=== PATIENT | male | born 1935 | race Caucasian/White ===

== ENCOUNTER 2021-09-28 17:16 | Inpatient (IN) | payer OTHER, BC ==
[2021-09-28 18:32] LABS: EOS % 1.3 % (0-4.5); HEMATOCRIT 47.7 % (35.4-49); HEMOGLOBIN 15.3 GM/dL (11.7-16.9); LYMPH % 12.5 % (8-40); MCHC 32.2 g/dl (32.0-35.9); MEAN CELL VOLUME 96.3 fl (80-96); MEAN PLT VOLUME 8.8 fl (7.5-11.1); NEUT % 78.2 % (42.8-82.8); PLATELET COUNT 166 10^3/uL (134-434); RBC 4.96 M/mm3 (4.00-5.60); RDW 18.8 % (11.9-15.9); WHITE BLOOD COUNT 5.3 K/mm3 (4.0-10.0)
[2021-09-28 18:58] LABS: ALBUMIN 3.1 g/dl (3.4-5.0); CALCIUM 8.9 mg/dL (8.5-10.1); MAGNESIUM 2.5 mg/dL (1.8-2.4)
[2021-09-28 18:59] LABS: BLOOD UREA NITROGEN 31.1 mg/dL (7-18)
[2021-09-28 19:02] LABS: CREATININE 2.1 mg/dL (0.55-1.3)
[2021-09-28 19:03] LABS: BILIRUBIN,TOTAL 1.5 mg/dL (0.2-1); TOT PROT 6.1 g/dl (6.4-8.2)
[2021-09-28] MEDS ORDERED: FUROSEMIDE 40 MG/4 ML INJECTABLE VIAL IVPUSH ONE (19:04)
[2021-09-28] MEDS ORDERED: FUROSEMIDE 40 MG/4 ML INJECTABLE VIAL ONE (19:10)
[2021-09-28 19:26] LABS: INR 1.61 (0.83-1.09); PROTHROMBIN TIME (PATIENT) 18.6 SEC (9.7-13.0)
[2021-09-28 19:47] LABS: N-TERMINAL BNP 21250.2 pg/ml (5-450)
[2021-09-28 20:27] LABS: EPI CELLS 4 /uL (0-25.1); HYALINE CASTS 2 /uL (0-3.1); URINE APPEARANCE CLEAR; URINE BACTERIA 5 /uL (0-1359); URINE BILIRUBIN NEGATIVE (NEGATIVE); URINE COLOR YELLOW; URINE GLUCOSE (UA) NEGATIVE (NEGATIVE); URINE KETONE NEGATIVE (NEGATIVE); URINE LEUK ESTERASE TRACE (NEGATIVE); URINE NITRITE NEGATIVE (NEGATIVE); URINE PROTEIN NEGATIVE (NEGATIVE); URINE RBC 2 /uL (0-23.9); URINE WBC 11 /uL (0-25.8)
[2021-09-28] MEDS ORDERED: FUROSEMIDE 40 MG/4 ML INJECTABLE VIAL IVPUSH SCH (21:30)
[2021-09-28] MEDS ORDERED: APIXABAN 2.5 MG TABLET ONE (23:13)
[2021-09-28] MEDS: APIXABAN 2.5 MG TABLET PO SCH (23:15)
[2021-09-29] MEDS ORDERED: FUROSEMIDE 40 MG/4 ML INJECTABLE VIAL IVPUSH ONE (01:36)
[2021-09-29 07:36] LABS: BASO % 0.8 % (0-2.0); EOS % 2.2 % (0-4.5); HEMATOCRIT 43.5 % (35.4-49); HEMOGLOBIN 14.1 GM/dL (11.7-16.9); LYMPH % 17.1 % (8-40); MCH 31.1 pg (25.7-33.7); MCHC 32.4 g/dl (32.0-35.9); MEAN PLT VOLUME 8.7 fl (7.5-11.1); NEUT % 71.9 % (42.8-82.8); PLATELET COUNT 138 10^3/uL (134-434); RBC 4.54 M/mm3 (4.00-5.60); RDW 17.7 % (11.9-15.9); WHITE BLOOD COUNT 4.8 K/mm3 (4.0-10.0)
[2021-09-29 07:44] LABS: MAGNESIUM 2.4 mg/dL (1.8-2.4)
[2021-09-29 07:45] LABS: CALCIUM 8.7 mg/dL (8.5-10.1)
[2021-09-29 07:46] LABS: CREATININE 2.2 mg/dL (0.55-1.3); TOT PROT 5.5 g/dl (6.4-8.2)
[2021-09-29 07:52] LABS: BLOOD UREA NITROGEN 33.8 mg/dL (7-18)
[2021-09-29 07:54] LABS: ALBUMIN 2.8 g/dl (3.4-5.0); BILIRUBIN,TOTAL 1.2 mg/dL (0.2-1); PHOSPHOROUS 3.6 mg/dL (2.5-4.9)
[2021-09-29] MEDS: APIXABAN 2.5 MG TABLET PO SCH ×2 (09:36→21:22)
[2021-09-29] MEDS: AMIODARONE HCL 200 MG TABLET PO SCH (10:59)
[2021-09-29] MEDS: FUROSEMIDE 40 MG/4 ML INJECTABLE VIAL IVPUSH SCH (11:00)
[2021-09-29] MEDS: ATORVASTATIN CA 80 MG TABLET (FP) PO SCH (21:23)
[2021-09-29 22:17] LABS: EPI CELLS 3 /uL (0-25.1); HYALINE CASTS 1 /uL (0-3.1); URINE APPEARANCE CLEAR; URINE BACTERIA 1 /uL (0-1359); URINE BILIRUBIN NEGATIVE (NEGATIVE); URINE COLOR DK YELLOW; URINE GLUCOSE (UA) NEGATIVE (NEGATIVE); URINE KETONE NEGATIVE (NEGATIVE); URINE LEUK ESTERASE TRACE (NEGATIVE); URINE NITRITE NEGATIVE (NEGATIVE); URINE PROTEIN NEGATIVE (NEGATIVE); URINE RBC 12 /uL (0-23.9); URINE UROBILINOGEN 0.2 mg/dL (0.2-1.0); URINE WBC 13 /uL (0-25.8)
[2021-09-30 07:22] LABS: BASO % 0.8 % (0-2.0); EOS % 3.4 % (0-4.5); HEMATOCRIT 40.1 % (35.4-49); HEMOGLOBIN 13.5 GM/dL (11.7-16.9); LYMPH % 15.7 % (8-40); MCH 31.7 pg (25.7-33.7); MCHC 33.5 g/dl (32.0-35.9); MEAN CELL VOLUME 94.6 fl (80-96); MEAN PLT VOLUME 8.7 fl (7.5-11.1); MONO % 8.6 % (3.8-10.2); NEUT % 71.5 % (42.8-82.8); PLATELET COUNT 121 10^3/uL (134-434); RBC 4.24 M/mm3 (4.00-5.60); RDW 18.1 % (11.9-15.9); WHITE BLOOD COUNT 4.5 K/mm3 (4.0-10.0)
[2021-09-30 07:44] LABS: CALCIUM 8.7 mg/dL (8.5-10.1)
[2021-09-30 07:45] LABS: ALBUMIN 2.7 g/dl (3.4-5.0); BLOOD UREA NITROGEN 33.3 mg/dL (7-18); MAGNESIUM 2.5 mg/dL (1.8-2.4)
[2021-09-30 07:48] LABS: BILIRUBIN,TOTAL 1.1 mg/dL (0.2-1); CREATININE 2.1 mg/dL (0.55-1.3); TOT PROT 5.2 g/dl (6.4-8.2)
[2021-09-30] MEDS: APIXABAN 2.5 MG TABLET PO SCH ×2 (09:20→23:06)
[2021-09-30] MEDS: FUROSEMIDE 40 MG/4 ML INJECTABLE VIAL IVPUSH SCH (09:54)
[2021-09-30] MEDS: AMIODARONE HCL 200 MG TABLET PO SCH (09:54)
[2021-09-30] MEDS ORDERED: AMIODARONE HCL 200 MG TABLET PO ONE (13:03)
[2021-09-30] MEDS ORDERED: FUROSEMIDE 40 MG/4 ML INJECTABLE VIAL IVPUSH SCH (13:04)
[2021-09-30] MEDS: BACITRACIN 15 GM TUBE TOPICAL OINTMENT TP SCH ×2 (14:06→23:06)
[2021-09-30] MEDS: FUROSEMIDE INJECTION 100 MG in DEXTROSE 5%-WATER - 90 ML IVPB SCH (15:18)
[2021-09-30] MEDS: ATORVASTATIN CA 80 MG TABLET (FP) PO SCH (23:06)
[2021-10-01 07:34] LABS: BASO % 0.5 % (0-2.0); HEMATOCRIT 40.2 % (35.4-49); HEMOGLOBIN 13.1 GM/dL (11.7-16.9); LYMPH % 13.6 % (8-40); MCH 30.9 pg (25.7-33.7); MCHC 32.4 g/dl (32.0-35.9); MEAN CELL VOLUME 95.2 fl (80-96); MEAN PLT VOLUME 8.7 fl (7.5-11.1); MONO % 8.4 % (3.8-10.2); NEUT % 75.5 % (42.8-82.8); PLATELET COUNT 121 10^3/uL (134-434); RBC 4.23 M/mm3 (4.00-5.60); RDW 18.2 % (11.9-15.9); WHITE BLOOD COUNT 5.2 K/mm3 (4.0-10.0)
[2021-10-01 08:16] LABS: ALBUMIN 2.9 g/dl (3.4-5.0); CALCIUM 8.9 mg/dL (8.5-10.1)
[2021-10-01 08:17] LABS: BLOOD UREA NITROGEN 29.8 mg/dL (7-18); MAGNESIUM 2.4 mg/dL (1.8-2.4)
[2021-10-01 08:20] LABS: CREATININE 1.9 mg/dL (0.55-1.3)
[2021-10-01 08:21] LABS: BILIRUBIN,TOTAL 1.6 mg/dL (0.2-1); TOT PROT 5.6 g/dl (6.4-8.2)
[2021-10-01] MEDS: AMIODARONE HCL 200 MG TABLET PO SCH (10:11)
[2021-10-01] MEDS: APIXABAN 2.5 MG TABLET PO SCH ×2 (10:12→21:58)
[2021-10-01] MEDS: BACITRACIN 15 GM TUBE TOPICAL OINTMENT TP SCH ×2 (10:14→21:59)
[2021-10-01] MEDS: ATORVASTATIN CA 80 MG TABLET (FP) PO SCH (22:02)
[2021-10-02 08:53] LABS: BASO % 0.5 % (0-2.0); EOS % 1.8 % (0-4.5); HEMATOCRIT 40.7 % (35.4-49); HEMOGLOBIN 13.6 GM/dL (11.7-16.9); MCH 31.4 pg (25.7-33.7); MCHC 33.4 g/dl (32.0-35.9); MEAN CELL VOLUME 93.9 fl (80-96); MEAN PLT VOLUME 8.7 fl (7.5-11.1); MONO % 8.9 % (3.8-10.2); NEUT % 75.8 % (42.8-82.8); PLATELET COUNT 120 10^3/uL (134-434); RBC 4.34 M/mm3 (4.00-5.60); RDW 18.3 % (11.9-15.9); WHITE BLOOD COUNT 5.3 K/mm3 (4.0-10.0)
[2021-10-02 09:04] LABS: CALCIUM 8.9 mg/dL (8.5-10.1)
[2021-10-02 09:05] LABS: ALBUMIN 3.1 g/dl (3.4-5.0); BLOOD UREA NITROGEN 30.1 mg/dL (7-18); MAGNESIUM 2.5 mg/dL (1.8-2.4)
[2021-10-02 09:08] LABS: CREATININE 1.9 mg/dL (0.55-1.3)
[2021-10-02 09:09] LABS: TOT PROT 5.8 g/dl (6.4-8.2)
[2021-10-02 09:10] LABS: BILIRUBIN,TOTAL 1.6 mg/dL (0.2-1)
[2021-10-02] MEDS: APIXABAN 2.5 MG TABLET PO SCH ×2 (09:20→21:39)
[2021-10-02] MEDS: AMIODARONE HCL 200 MG TABLET PO SCH (09:20)
[2021-10-02] MEDS: FUROSEMIDE INJECTION 100 MG in DEXTROSE 5%-WATER - 90 ML IVPB SCH (09:23)
[2021-10-02] MEDS: BACITRACIN 15 GM TUBE TOPICAL OINTMENT TP SCH ×2 (09:24→21:38)
[2021-10-02] MEDS: ATORVASTATIN CA 80 MG TABLET (FP) PO SCH (21:39)
[2021-10-03 06:53] LABS: BASO % 0.5 % (0-2.0); EOS % 0.8 % (0-4.5); HEMATOCRIT 41.4 % (35.4-49); HEMOGLOBIN 13.3 GM/dL (11.7-16.9); LYMPH % 12.3 % (8-40); MCH 30.7 pg (25.7-33.7); MCHC 32.1 g/dl (32.0-35.9); MEAN CELL VOLUME 95.8 fl (80-96); MEAN PLT VOLUME 8.9 fl (7.5-11.1); MONO % 10.4 % (3.8-10.2); PLATELET COUNT 114 10^3/uL (134-434); RBC 4.32 M/mm3 (4.00-5.60); RDW 18.1 % (11.9-15.9)
[2021-10-03 07:29] LABS: ALBUMIN 3.1 g/dl (3.4-5.0)
[2021-10-03 07:30] LABS: BLOOD UREA NITROGEN 30.6 mg/dL (7-18)
[2021-10-03 07:32] LABS: CREATININE 1.8 mg/dL (0.55-1.3)
[2021-10-03 07:33] LABS: MAGNESIUM 2.5 mg/dL (1.8-2.4)
[2021-10-03 07:34] LABS: TOT PROT 5.5 g/dl (6.4-8.2)
[2021-10-03] MEDS: BACITRACIN 15 GM TUBE TOPICAL OINTMENT TP SCH ×2 (09:37→22:10)
[2021-10-03] MEDS: APIXABAN 2.5 MG TABLET PO SCH ×2 (09:37→21:54)
[2021-10-03] MEDS: AMIODARONE HCL 200 MG TABLET PO SCH (09:37)
[2021-10-03] MEDS: ATORVASTATIN CA 80 MG TABLET (FP) PO SCH (21:54)
[2021-10-04] MEDS: FUROSEMIDE INJECTION 100 MG in DEXTROSE 5%-WATER - 90 ML IVPB SCH (06:59)
[2021-10-04 07:25] LABS: BASO % 0.1 % (0-2.0); EOS % 0.1 % (0-4.5); HEMATOCRIT 41.4 % (35.4-49); HEMOGLOBIN 13.6 GM/dL (11.7-16.9); MCH 31.8 pg (25.7-33.7); MEAN CELL VOLUME 96.4 fl (80-96); MEAN PLT VOLUME 9.6 fl (7.5-11.1); MONO % 9.7 % (3.8-10.2); NEUT % 82.1 % (42.8-82.8); PLATELET COUNT 112 10^3/uL (134-434); RBC 4.29 M/mm3 (4.00-5.60); RDW 18.2 % (11.9-15.9); WHITE BLOOD COUNT 6.7 K/mm3 (4.0-10.0)
[2021-10-04 07:28] LABS: BLOOD UREA NITROGEN 39.6 mg/dL (7-18); CALCIUM 9.5 mg/dL (8.5-10.1)
[2021-10-04 07:29] LABS: ALBUMIN 3.2 g/dl (3.4-5.0); MAGNESIUM 2.4 mg/dL (1.8-2.4)
[2021-10-04 07:31] LABS: CREATININE 2.3 mg/dL (0.55-1.3)
[2021-10-04 07:33] LABS: BILIRUBIN,TOTAL 3.3 mg/dL (0.2-1); TOT PROT 5.8 g/dl (6.4-8.2)
[2021-10-04] MEDS: AMIODARONE HCL 200 MG TABLET PO SCH (09:58)
[2021-10-04] MEDS: BACITRACIN 15 GM TUBE TOPICAL OINTMENT TP SCH ×2 (09:58→22:29)
[2021-10-04] MEDS: APIXABAN 2.5 MG TABLET PO SCH ×2 (09:58→22:28)
[2021-10-04] MEDS: ATORVASTATIN CA 80 MG TABLET (FP) PO SCH (22:28)
[2021-10-05 08:44] LABS: BASO % 0.1 % (0-2.0); EOS % 0.1 % (0-4.5); HEMATOCRIT 41.5 % (35.4-49); HEMOGLOBIN 13.4 GM/dL (11.7-16.9); LYMPH % 4.6 % (8-40); MCH 30.9 pg (25.7-33.7); MCHC 32.2 g/dl (32.0-35.9); MEAN CELL VOLUME 95.8 fl (80-96); MONO % 7.3 % (3.8-10.2); NEUT % 87.9 % (42.8-82.8); PLATELET COUNT 63 10^3/uL (134-434); RBC 4.34 M/mm3 (4.00-5.60); WHITE BLOOD COUNT 7.9 K/mm3 (4.0-10.0)
[2021-10-05 09:10] LABS: BLOOD UREA NITROGEN 56.9 mg/dL (7-18); MAGNESIUM 2.9 mg/dL (1.8-2.4)
[2021-10-05 09:12] LABS: CREATININE 3.4 mg/dL (0.55-1.3)
[2021-10-05 09:14] LABS: BILIRUBIN,TOTAL 5.2 mg/dL (0.2-1); TOT PROT 5.7 g/dl (6.4-8.2)
[2021-10-05] MEDS: AMIODARONE HCL 200 MG TABLET PO SCH (09:17)
[2021-10-05] MEDS: APIXABAN 2.5 MG TABLET PO SCH (09:17)
[2021-10-05] MEDS: BACITRACIN 15 GM TUBE TOPICAL OINTMENT TP SCH ×2 (09:17→21:31)
[2021-10-05] MEDS ORDERED: SODIUM BICARBONATE 8.4% 50 MEQ/50 ML DISP.SYRIN IVPUSH ONE ×2 (09:41→10:21)
[2021-10-05] MEDS ORDERED: CALCIUM GLUCONATE 10% - 1,000 MG/10 ML VIAL IVPB ONE (09:41)
[2021-10-05] MEDS ORDERED: INSULIN REGULAR HUMAN 100 UNITS/ML *VIAL SQ ONE (09:41)
[2021-10-05] MEDS ORDERED: DEXTROSE 50%-WATER - 25 GM/50 ML VIAL IVPUSH ONE ×2 (09:41→10:21)
[2021-10-05] MEDS ORDERED: SODIUM ZIRCONIUM CYCLOSILICATE (LOKELMA) 5 GM PACKET PO SCH (10:00)
[2021-10-05] MEDS ORDERED: CALCIUM GLUCONATE 10% - 1,000 MG/10 ML VIAL IVPUSH ONE (10:21)
[2021-10-05 12:09] LABS: PROTHROMBIN TIME (PATIENT) 63.4 SEC (9.7-13.0)
[2021-10-05 12:15] LABS: INR 5.42 (0.83-1.09)
[2021-10-05] MEDS ORDERED: PHYTONADIONE 10 MG/1 ML AMP SQ ONE (12:24)
[2021-10-05] MEDS ORDERED: SODIUM CHLORIDE 500 ML IV SCH (12:45)
[2021-10-05 16:28] LABS: BASO % 0.1 % (0-2.0); HEMATOCRIT 39.7 % (35.4-49); HEMOGLOBIN 13.1 GM/dL (11.7-16.9); LYMPH % 4.6 % (8-40); MCH 31.5 pg (25.7-33.7); MEAN CELL VOLUME 95.5 fl (80-96); MEAN PLT VOLUME 9.5 fl (7.5-11.1); MONO % 5.8 % (3.8-10.2); NEUT % 89.5 % (42.8-82.8); PLATELET COUNT 45 10^3/uL (134-434); RBC 4.15 M/mm3 (4.00-5.60); RDW 17.9 % (11.9-15.9); WHITE BLOOD COUNT 7.5 K/mm3 (4.0-10.0)
[2021-10-05 16:54] LABS: PROTHROMBIN TIME (PATIENT) 64.1 SEC (9.7-13.0)
[2021-10-05 17:29] LABS: INR 5.48 (0.83-1.09)
[2021-10-05 17:51] LABS: BILIRUBIN,DIRECT 3.7 mg/dL (0.0-0.2); BILIRUBIN,TOTAL 5.6 mg/dL (0.2-1); BLOOD UREA NITROGEN 62.2 mg/dL (7-18); CALCIUM 8.8 mg/dL (8.5-10.1); CREATININE 3.4 mg/dL (0.55-1.3); TOT PROT 5.5 g/dl (6.4-8.2)
[2021-10-05] MEDS: SODIUM ZIRCONIUM CYCLOSILICATE (LOKELMA) 5 GM PACKET PO SCH (21:31)
[2021-10-06 07:50] LABS: HEMATOCRIT 40.9 % (35.4-49); HEMOGLOBIN 13.3 GM/dL (11.7-16.9); MCH 31.1 pg (25.7-33.7); MCHC 32.5 g/dl (32.0-35.9); MEAN CELL VOLUME 95.6 fl (80-96); MEAN PLT VOLUME 10.2 fl (7.5-11.1); PLATELET COUNT 45 10^3/uL (134-434); RBC 4.28 M/mm3 (4.00-5.60); RDW 17.8 % (11.9-15.9); WHITE BLOOD COUNT 6.5 K/mm3 (4.0-10.0)
[2021-10-06 08:18] LABS: ALBUMIN 2.8 g/dl (3.4-5.0)
[2021-10-06 08:21] LABS: BILIRUBIN,DIRECT 3.7 mg/dL (0.0-0.2); BILIRUBIN,TOTAL 5.2 mg/dL (0.2-1); TOT PROT 5.3 g/dl (6.4-8.2)
[2021-10-06 08:23] LABS: PROTHROMBIN TIME (PATIENT) 50.9 SEC (9.7-13.0)
[2021-10-06 08:39] LABS: INR 4.36 (0.83-1.09)
[2021-10-06] MEDS ORDERED: PHYTONADIONE 10 MG/1 ML AMP SQ ONE (08:43)
[2021-10-06 08:45] LABS: ALBUMIN 2.8 g/dl (3.4-5.0); BILIRUBIN,TOTAL 5.5 mg/dL (0.2-1); BLOOD UREA NITROGEN 66.7 mg/dL (7-18); CREATININE 3.7 mg/dL (0.55-1.3); MAGNESIUM 2.7 mg/dL (1.8-2.4); TOT PROT 5.2 g/dl (6.4-8.2)
[2021-10-06 09:43] LABS: ANISOCYTOSIS 1+; MACROCYTOSIS 0; OVALOCYTE 1+
[2021-10-06] MEDS: SODIUM ZIRCONIUM CYCLOSILICATE (LOKELMA) 5 GM PACKET PO SCH (10:41)
[2021-10-06] MEDS: BACITRACIN 15 GM TUBE TOPICAL OINTMENT TP SCH ×2 (10:41→21:55)
[2021-10-06] MEDS ORDERED: SODIUM CHLORIDE 1,000 ML IV SCH ×2 (13:00)
[2021-10-07 08:25] LABS: BASO % 0.1 % (0-2.0); EOS % 0.1 % (0-4.5); HEMATOCRIT 41.6 % (35.4-49); HEMOGLOBIN 13.7 GM/dL (11.7-16.9); INR 3.89 (0.83-1.09); LYMPH % 4.3 % (8-40); MCH 31.3 pg (25.7-33.7); MEAN PLT VOLUME 10.1 fl (7.5-11.1); MONO % 5.8 % (3.8-10.2); NEUT % 89.7 % (42.8-82.8); PLATELET COUNT 37 10^3/uL (134-434); PROTHROMBIN TIME (PATIENT) 45.4 SEC (9.7-13.0); RBC 4.38 M/mm3 (4.00-5.60); WHITE BLOOD COUNT 7.2 K/mm3 (4.0-10.0)
[2021-10-07 08:45] LABS: ALBUMIN 2.8 g/dl (3.4-5.0); CALCIUM 7.7 mg/dL (8.5-10.1); MAGNESIUM 2.8 mg/dL (1.8-2.4)
[2021-10-07 08:47] LABS: CREATININE 4.1 mg/dL (0.55-1.3)
[2021-10-07 08:49] LABS: BILIRUBIN,TOTAL 5.3 mg/dL (0.2-1); TOT PROT 5.2 g/dl (6.4-8.2)
[2021-10-07] MEDS ORDERED: SODIUM ZIRCONIUM CYCLOSILICATE (LOKELMA) 5 GM PACKET PO SCH (10:00)
[2021-10-07] MEDS: BACITRACIN 15 GM TUBE TOPICAL OINTMENT TP SCH ×2 (11:19→21:12)
[2021-10-07] MEDS ORDERED: SODIUM ZIRCONIUM CYCLOSILICATE (LOKELMA) 5 GM PACKET PO ONE (11:25)
[2021-10-07] MEDS ORDERED: SODIUM CHLORIDE 1,000 ML IV SCH (12:15)
[2021-10-07] MEDS: SODIUM ZIRCONIUM CYCLOSILICATE (LOKELMA) 5 GM PACKET PO SCH (21:06)
[2021-10-07 22:58] LABS: ALBUMIN 2.5 g/dl (3.4-5.0); ALK PHOS 200 U/L (45-117); ANION GAP 19 MMOL/L (8-16); BILIRUBIN,TOTAL 5.1 mg/dL (0.2-1); BLOOD UREA NITROGEN 88.9 mg/dL (7-18); CALCIUM 7.2 mg/dL (8.5-10.1); CHLORIDE 100 mmol/L (98-107); CO2 13 mmol/L (21-32); CREATININE 4.3 mg/dL (0.55-1.3); GLUCOSE,RANDOM 100 mg/dL (74-106); SODIUM 132 mmol/L (136-145); TOT PROT 5.1 g/dl (6.4-8.2)
[2021-10-08 00:44] LABS: CALCIUM 7.2 mg/dL (8.5-10.1)
[2021-10-08 00:45] LABS: BLOOD UREA NITROGEN 86.5 mg/dL (7-18)
[2021-10-08 00:48] LABS: CREATININE 4.3 mg/dL (0.55-1.3)
[2021-10-08 08:35] LABS: INR 2.9 (0.83-1.09); PROTHROMBIN TIME (PATIENT) 33.7 SEC (9.7-13.0)
[2021-10-08] MEDS ORDERED: SODIUM CHLORIDE 500 ML IV STA (10:31)
[2021-10-08] MEDS: BACITRACIN 15 GM TUBE TOPICAL OINTMENT TP SCH ×2 (10:36→21:35)
[2021-10-08] MEDS: SODIUM ZIRCONIUM CYCLOSILICATE (LOKELMA) 5 GM PACKET PO SCH (10:54)
[2021-10-08 11:34] LABS: BASO % 0.1 % (0-2.0); EOS % 0.4 % (0-4.5); HEMATOCRIT 42.3 % (35.4-49); HEMOGLOBIN 13.8 GM/dL (11.7-16.9); LYMPH % 4.2 % (8-40); MCHC 32.6 g/dl (32.0-35.9); MEAN CELL VOLUME 95.1 fl (80-96); NEUT % 90.3 % (42.8-82.8); PLATELET COUNT 55 10^3/uL (134-434); RBC 4.44 M/mm3 (4.00-5.60)
[2021-10-08 11:44] LABS: INR 2.76 (0.83-1.09); PROTHROMBIN TIME (PATIENT) 32.1 SEC (9.7-13.0)
[2021-10-08] MEDS: SODIUM BICARBONATE 8.4% - 50 MEQ in SODIUM CHLORIDE 0.45% 1,000 ML IV SCH (13:21)
[2021-10-08 13:50] LABS: ALBUMIN 2.6 g/dl (3.4-5.0); CALCIUM 7.3 mg/dL (8.5-10.1)
[2021-10-08 13:51] LABS: BLOOD UREA NITROGEN 95.9 mg/dL (7-18)
[2021-10-08 13:53] LABS: BILIRUBIN,DIRECT 3.3 mg/dL (0.0-0.2); CREATININE 4.3 mg/dL (0.55-1.3)
[2021-10-08 13:55] LABS: BILIRUBIN,TOTAL 4.4 mg/dL (0.2-1); TOT PROT 4.8 g/dl (6.4-8.2)
[2021-10-08 23:11] LABS: BLOOD UREA NITROGEN 92.2 mg/dL (7-18); CREATININE 4.1 mg/dL (0.55-1.3)
[2021-10-08 23:12] LABS: ALBUMIN 2.5 g/dl (3.4-5.0); CALCIUM 7.1 mg/dL (8.5-10.1); TOT PROT 4.8 g/dl (6.4-8.2)
[2021-10-08 23:13] LABS: BILIRUBIN,TOTAL 4.6 mg/dL (0.2-1)
[2021-10-09] MEDS: SODIUM BICARBONATE 8.4% - 50 MEQ in SODIUM CHLORIDE 0.45% 1,000 ML IV SCH ×2 (00:28→12:09)
[2021-10-09 07:59] LABS: BASO % 0.1 % (0-2.0); EOS % 0.9 % (0-4.5); HEMATOCRIT 41.2 % (35.4-49); HEMOGLOBIN 13.4 GM/dL (11.7-16.9); LYMPH % 5.7 % (8-40); MCHC 32.6 g/dl (32.0-35.9); MEAN CELL VOLUME 95.2 fl (80-96); MEAN PLT VOLUME 9.6 fl (7.5-11.1); MONO % 5.1 % (3.8-10.2); NEUT % 88.2 % (42.8-82.8); PLATELET COUNT 57 10^3/uL (134-434); RBC 4.32 M/mm3 (4.00-5.60); RDW 18.1 % (11.9-15.9); WHITE BLOOD COUNT 5.6 K/mm3 (4.0-10.0)
[2021-10-09 08:16] LABS: INR 2.05 (0.83-1.09); PROTHROMBIN TIME (PATIENT) 23.7 SEC (9.7-13.0)
[2021-10-09 08:19] LABS: MAGNESIUM 2.8 mg/dL (1.8-2.4)
[2021-10-09] MEDS: BACITRACIN 15 GM TUBE TOPICAL OINTMENT TP SCH ×2 (09:04→21:34)
[2021-10-09 11:57] LABS: ALBUMIN 2.5 g/dl (3.4-5.0); BLOOD UREA NITROGEN 96.6 mg/dL (7-18); CALCIUM 7.4 mg/dL (8.5-10.1)
[2021-10-09 12:01] LABS: CREATININE 4.2 mg/dL (0.55-1.3)
[2021-10-09 12:02] LABS: BILIRUBIN,TOTAL 4.7 mg/dL (0.2-1); TOT PROT 4.8 g/dl (6.4-8.2)
[2021-10-09] MEDS ORDERED: SODIUM CHLORIDE 1,000 ML IV SCH (15:00)
[2021-10-09] MEDS: AMINO ACIDS/PROTEIN HYDROLYS 30 ML LIQUID.PKT PO SCH (17:13)
[2021-10-09] MEDS: APIXABAN 2.5 MG TABLET PO SCH (21:34)
[2021-10-10 07:29] LABS: BASO % 0.1 % (0-2.0); EOS % 1.9 % (0-4.5); HEMATOCRIT 40.7 % (35.4-49); HEMOGLOBIN 13.2 GM/dL (11.7-16.9); INR 1.88 (0.83-1.09); LYMPH % 8.1 % (8-40); MCH 30.8 pg (25.7-33.7); MCHC 32.4 g/dl (32.0-35.9); MEAN CELL VOLUME 95.1 fl (80-96); MEAN PLT VOLUME 8.9 fl (7.5-11.1); MONO % 6.6 % (3.8-10.2); NEUT % 83.3 % (42.8-82.8); PLATELET COUNT 59 10^3/uL (134-434); PROTHROMBIN TIME (PATIENT) 21.8 SEC (9.7-13.0); RBC 4.28 M/mm3 (4.00-5.60); RDW 17.7 % (11.9-15.9); WHITE BLOOD COUNT 5.9 K/mm3 (4.0-10.0)
[2021-10-10 07:50] LABS: ALBUMIN 2.3 g/dl (3.4-5.0); CREATININE 4.2 mg/dL (0.55-1.3)
[2021-10-10 07:51] LABS: BLOOD UREA NITROGEN 101.6 mg/dL (7-18)
[2021-10-10 07:52] LABS: BILIRUBIN,TOTAL 4.7 mg/dL (0.2-1); TOT PROT 4.6 g/dl (6.4-8.2)
[2021-10-10 07:53] LABS: CALCIUM 7.7 mg/dL (8.5-10.1); MAGNESIUM 2.7 mg/dL (1.8-2.4)
[2021-10-10] MEDS: AMINO ACIDS/PROTEIN HYDROLYS 30 ML LIQUID.PKT PO SCH ×2 (09:12→17:25)
[2021-10-10] MEDS: APIXABAN 2.5 MG TABLET PO SCH ×2 (09:12→21:36)
[2021-10-10] MEDS: BACITRACIN 15 GM TUBE TOPICAL OINTMENT TP SCH ×2 (09:13→21:37)
[2021-10-10] MEDS: FUROSEMIDE 40 MG/4 ML INJECTABLE VIAL IVPUSH SCH (14:02)
[2021-10-11 07:48] LABS: INR 1.84 (0.83-1.09); PROTHROMBIN TIME (PATIENT) 21.3 SEC (9.7-13.0)
[2021-10-11 07:50] LABS: BASO % 0.2 % (0-2.0); EOS % 2.1 % (0-4.5); HEMATOCRIT 38.2 % (35.4-49); HEMOGLOBIN 12.8 GM/dL (11.7-16.9); LYMPH % 4.6 % (8-40); MCH 31.2 pg (25.7-33.7); MCHC 33.4 g/dl (32.0-35.9); MEAN CELL VOLUME 93.6 fl (80-96); MEAN PLT VOLUME 8.8 fl (7.5-11.1); MONO % 6.2 % (3.8-10.2); NEUT % 86.9 % (42.8-82.8); PLATELET COUNT 62 10^3/uL (134-434); RBC 4.09 M/mm3 (4.00-5.60); RDW 17.6 % (11.9-15.9); WHITE BLOOD COUNT 4.9 K/mm3 (4.0-10.0)
[2021-10-11 07:58] LABS: CHLORIDE 96 mmol/L (98-107); SODIUM 133 mmol/L (136-145)
[2021-10-11 08:08] LABS: ALBUMIN 2.2 g/dl (3.4-5.0); ANION GAP 14 MMOL/L (8-16); CALCIUM 8.1 mg/dL (8.5-10.1); CO2 23 mmol/L (21-32); GLUCOSE,RANDOM 107 mg/dL (74-106)
[2021-10-11 08:09] LABS: MAGNESIUM 2.8 mg/dL (1.8-2.4)
[2021-10-11 08:11] LABS: CREATININE 3.9 mg/dL (0.55-1.3); SGOT/AST 248 U/L (15-37); SGPT/ALT 776 U/L (13-61)
[2021-10-11 08:13] LABS: BILIRUBIN,TOTAL 4.5 mg/dL (0.2-1); TOT PROT 4.5 g/dl (6.4-8.2)
[2021-10-11 08:14] LABS: ALK PHOS 149 U/L (45-117); BLOOD UREA NITROGEN 107.5 mg/dL (7-18)
[2021-10-11] MEDS: APIXABAN 2.5 MG TABLET PO SCH ×2 (10:19→21:35)
[2021-10-11] MEDS: FUROSEMIDE 40 MG/4 ML INJECTABLE VIAL IVPUSH SCH (10:19)
[2021-10-11] MEDS: BACITRACIN 15 GM TUBE TOPICAL OINTMENT TP SCH ×2 (10:20→21:35)
[2021-10-11] MEDS: AMINO ACIDS/PROTEIN HYDROLYS 30 ML LIQUID.PKT PO SCH ×2 (10:20→17:16)
[2021-10-12 07:44] LABS: BASO % 0.1 % (0-2.0); HEMATOCRIT 37.1 % (35.4-49); HEMOGLOBIN 12.5 GM/dL (11.7-16.9); LYMPH % 5.4 % (8-40); MCH 31.4 pg (25.7-33.7); MCHC 33.7 g/dl (32.0-35.9); MEAN CELL VOLUME 93.2 fl (80-96); MEAN PLT VOLUME 9.1 fl (7.5-11.1); MONO % 7.9 % (3.8-10.2); NEUT % 83.6 % (42.8-82.8); PLATELET COUNT 67 10^3/uL (134-434); RBC 3.98 M/mm3 (4.00-5.60); RDW 17.5 % (11.9-15.9); WHITE BLOOD COUNT 4.4 K/mm3 (4.0-10.0)
[2021-10-12 07:48] LABS: INR 1.88 (0.83-1.09); PROTHROMBIN TIME (PATIENT) 21.8 SEC (9.7-13.0)
[2021-10-12 07:59] LABS: CHLORIDE 96 mmol/L (98-107); SODIUM 133 mmol/L (136-145)
[2021-10-12 08:03] LABS: GLUCOSE,RANDOM 91 mg/dL (74-106)
[2021-10-12 08:04] LABS: ALBUMIN 2.2 g/dl (3.4-5.0)
[2021-10-12 08:05] LABS: ANION GAP 11 MMOL/L (8-16); CALCIUM 7.7 mg/dL (8.5-10.1); CO2 25 mmol/L (21-32); MAGNESIUM 2.6 mg/dL (1.8-2.4)
[2021-10-12 08:09] LABS: SGOT/AST 153 U/L (15-37); SGPT/ALT 612 U/L (13-61)
[2021-10-12 08:10] LABS: BILIRUBIN,TOTAL 4.7 mg/dL (0.2-1); TOT PROT 4.4 g/dl (6.4-8.2)
[2021-10-12 08:11] LABS: ALK PHOS 131 U/L (45-117)
[2021-10-12 08:14] LABS: BLOOD UREA NITROGEN 115.5 mg/dL (7-18); CREATININE 3.7 mg/dL (0.55-1.3)
[2021-10-12] MEDS: BACITRACIN 15 GM TUBE TOPICAL OINTMENT TP SCH ×2 (08:59→22:24)
[2021-10-12] MEDS: AMINO ACIDS/PROTEIN HYDROLYS 30 ML LIQUID.PKT PO SCH ×2 (08:59→17:59)
[2021-10-12] MEDS: AMIODARONE HCL 200 MG TABLET PO SCH (09:00)
[2021-10-12] MEDS: FUROSEMIDE 40 MG/4 ML INJECTABLE VIAL IVPUSH SCH (09:00)
[2021-10-12] MEDS: APIXABAN 2.5 MG TABLET PO SCH ×2 (09:00→22:24)
[2021-10-13 07:27] LABS: BASO % 0.9 % (0-2.0); EOS % 1.2 % (0-4.5); HEMATOCRIT 38.8 % (35.4-49); HEMOGLOBIN 12.8 GM/dL (11.7-16.9); LYMPH % 5.2 % (8-40); MCH 30.9 pg (25.7-33.7); MCHC 32.9 g/dl (32.0-35.9); MEAN CELL VOLUME 93.8 fl (80-96); MEAN PLT VOLUME 9.3 fl (7.5-11.1); MONO % 8.2 % (3.8-10.2); NEUT % 84.5 % (42.8-82.8); PLATELET COUNT 80 10^3/uL (134-434); RBC 4.14 M/mm3 (4.00-5.60); RDW 18.1 % (11.9-15.9); WHITE BLOOD COUNT 4.8 K/mm3 (4.0-10.0)
[2021-10-13 07:38] LABS: INR 1.69 (0.83-1.09); PROTHROMBIN TIME (PATIENT) 19.5 SEC (9.7-13.0)
[2021-10-13 07:45] LABS: CHLORIDE 95 mmol/L (98-107); SODIUM 133 mmol/L (136-145)
[2021-10-13 07:49] LABS: GLUCOSE,RANDOM 99 mg/dL (74-106)
[2021-10-13 07:50] LABS: ALBUMIN 2.3 g/dl (3.4-5.0); ANION GAP 12 MMOL/L (8-16); CALCIUM 8.2 mg/dL (8.5-10.1); CO2 26 mmol/L (21-32); MAGNESIUM 2.5 mg/dL (1.8-2.4)
[2021-10-13 07:52] LABS: SGPT/ALT 510 U/L (13-61)
[2021-10-13 07:53] LABS: CREATININE 3.4 mg/dL (0.55-1.3); SGOT/AST 110 U/L (15-37)
[2021-10-13 07:54] LABS: BILIRUBIN,TOTAL 4.3 mg/dL (0.2-1); TOT PROT 4.6 g/dl (6.4-8.2)
[2021-10-13 07:55] LABS: ALK PHOS 127 U/L (45-117)
[2021-10-13 07:56] LABS: BLOOD UREA NITROGEN 121.5 mg/dL (7-18)
[2021-10-13] MEDS: APIXABAN 2.5 MG TABLET PO SCH ×2 (09:07→21:13)
[2021-10-13] MEDS: BACITRACIN 15 GM TUBE TOPICAL OINTMENT TP SCH ×2 (09:07→21:16)
[2021-10-13] MEDS: AMIODARONE HCL 200 MG TABLET PO SCH (09:07)
[2021-10-13] MEDS: AMINO ACIDS/PROTEIN HYDROLYS 30 ML LIQUID.PKT PO SCH (09:07)
[2021-10-13 14:47] VITALS: BMI 24.2
[2021-10-13] MEDS ORDERED: FUROSEMIDE 20 MG TABLET (FP) PO ONE (15:06)
[2021-10-14 07:33] LABS: BASO % 0.3 % (0-2.0); EOS % 1.4 % (0-4.5); HEMATOCRIT 37.4 % (35.4-49); HEMOGLOBIN 12.5 GM/dL (11.7-16.9); LYMPH % 5.7 % (8-40); MCH 31.2 pg (25.7-33.7); MCHC 33.5 g/dl (32.0-35.9); MEAN PLT VOLUME 9.2 fl (7.5-11.1); MONO % 8.3 % (3.8-10.2); NEUT % 84.3 % (42.8-82.8); PLATELET COUNT 89 10^3/uL (134-434); RBC 4.02 M/mm3 (4.00-5.60); WHITE BLOOD COUNT 4.7 K/mm3 (4.0-10.0)
[2021-10-14 07:39] LABS: INR 1.84 (0.83-1.09); PROTHROMBIN TIME (PATIENT) 21.3 SEC (9.7-13.0)
[2021-10-14] MEDS: AMINO ACIDS/PROTEIN HYDROLYS 30 ML LIQUID.PKT PO SCH (09:00)
[2021-10-14] MEDS: APIXABAN 2.5 MG TABLET PO SCH ×2 (10:54→21:12)
[2021-10-14] MEDS: AMIODARONE HCL 200 MG TABLET PO SCH (10:54)
[2021-10-14] MEDS: BACITRACIN 15 GM TUBE TOPICAL OINTMENT TP SCH ×2 (10:55→21:11)
[2021-10-15 06:03] VITALS: TEMP 97.5
[2021-10-15 07:30] LABS: INR 1.67 (0.83-1.09); PROTHROMBIN TIME (PATIENT) 19.3 SEC (9.7-13.0)
[2021-10-15 07:31] LABS: BASO % 0.3 % (0-2.0); EOS % 1.1 % (0-4.5); HEMATOCRIT 36.3 % (35.4-49); HEMOGLOBIN 12.3 GM/dL (11.7-16.9); LYMPH % 5.9 % (8-40); MCH 31.6 pg (25.7-33.7); MCHC 33.9 g/dl (32.0-35.9); MEAN CELL VOLUME 93.4 fl (80-96); MONO % 6.9 % (3.8-10.2); NEUT % 85.8 % (42.8-82.8); PLATELET COUNT 100 10^3/uL (134-434); RBC 3.88 M/mm3 (4.00-5.60); RDW 17.9 % (11.9-15.9); WHITE BLOOD COUNT 5.1 K/mm3 (4.0-10.0)
[2021-10-15] MEDS: BACITRACIN 15 GM TUBE TOPICAL OINTMENT TP SCH (09:23)
[2021-10-15] MEDS: AMINO ACIDS/PROTEIN HYDROLYS 30 ML LIQUID.PKT PO SCH (09:23)
[2021-10-15] MEDS: AMIODARONE HCL 200 MG TABLET PO SCH (09:24)
[2021-10-15] MEDS: APIXABAN 2.5 MG TABLET PO SCH (09:24)
[2021-10-15 14:46] VITALS: BP 92/53; PULSE 91
== END 2021-10-15 15:30 | DRG 291 ==
LOC: JER 17:16 → SUPCPDRO 17:16 → JERBED 19:21 → J4W 09-29 00:29
PROVIDERS: ADMIT Internal Medicine; ATTEND Nurse Practitioner Family
DX: I13.0 Hypertensive heart and chronic kidney disease with heart failure and stage 1 through stage 4 chronic kidney disease, or unspecified chronic kidney disease (principal); I50.23 Acute on chronic systolic (congestive) heart failure; N17.0 Acute kidney failure with tubular necrosis; G93.41 Metabolic encephalopathy; E87.1 Hypo-osmolality and hyponatremia; N18.9 Chronic kidney disease, unspecified; I25.10 Atherosclerotic heart disease of native coronary artery without angina pectoris; E78.5 Hyperlipidemia, unspecified; I48.91 Unspecified atrial fibrillation; I08.0 Rheumatic disorders of both mitral and aortic valves; I25.5 Ischemic cardiomyopathy; N20.0 Calculus of kidney; K76.1 Chronic passive congestion of liver; E87.5 Hyperkalemia; I95.9 Hypotension, unspecified; R94.5 Abnormal results of liver function studies; Z90.49 Acquired absence of other specified parts of digestive tract; Z95.810 Presence of automatic (implantable) cardiac defibrillator
CPT/HCPCS: 0241U-QW; 36415; 70450-TC; 71045-TC-FY; 71250-TC; 76705-TC; 76775-TC; 80048; 80053; 80061; 80076; 81003; 82140; 82550; 82553; 82570; 83735; 83880; 84100; 84132; 84156; 84484; 85025; 85610; 85730; 86022; 86704; 86709; 86803; 87086; 87340; 87517; 87807; 93005; 93010; 93306-TC; 93971-TC; 94761; 97116-GP; 97162-GP; 99285-25; C9803-CS; U0003; U0005

== ENCOUNTER 2021-10-17 15:32 | Inpatient (IN) | payer OTHER, BC ==
[2021-10-17 16:34] LABS: BASO % 0.2 % (0-2.0); HEMATOCRIT 38.3 % (35.4-49); HEMOGLOBIN 12.8 GM/dL (11.7-16.9); LYMPH % 3.8 % (8-40); MCH 31.8 pg (25.7-33.7); MCHC 33.5 g/dl (32.0-35.9); MEAN PLT VOLUME 9.8 fl (7.5-11.1); MONO % 10.3 % (3.8-10.2); NEUT % 85.7 % (42.8-82.8); PLATELET COUNT 127 10^3/uL (134-434); RBC 4.03 M/mm3 (4.00-5.60); RDW 19.3 % (11.9-15.9); WHITE BLOOD COUNT 7.6 K/mm3 (4.0-10.0)
[2021-10-17 16:44] LABS: ARTERIAL BLD GAS O2 SATURATION 96.9 % (95-98); ARTERIAL BLOOD GAS BASE EXCESS -1.4 mmol/L (-2-2); ARTERIAL BLOOD GAS PO2 83.6 mmHg (80-100)
[2021-10-17 16:47] LABS: ALLENS TEST POSITIVE
[2021-10-17] MEDS ORDERED: FUROSEMIDE 40 MG/4 ML INJECTABLE VIAL ONE (16:50)
[2021-10-17 16:53] LABS: CHLORIDE 95 mmol/L (98-107); SODIUM 135 mmol/L (136-145)
[2021-10-17 16:55] LABS: ANION GAP 14 MMOL/L (8-16); CALCIUM 8.9 mg/dL (8.5-10.1); CO2 26 mmol/L (21-32); GLUCOSE,RANDOM 142 mg/dL (74-106); MAGNESIUM 2.5 mg/dL (1.8-2.4)
[2021-10-17 16:58] LABS: CREATININE 3.1 mg/dL (0.55-1.3); PHOSPHOROUS 4.3 mg/dL (2.5-4.9); SGOT/AST 181 U/L (15-37); SGPT/ALT 399 U/L (13-61)
[2021-10-17 17:00] LABS: TOT PROT 6.1 g/dl (6.4-8.2)
[2021-10-17 17:01] LABS: ALK PHOS 150 U/L (45-117)
[2021-10-17] MEDS: FUROSEMIDE 40 MG/4 ML INJECTABLE VIAL IVPUSH SCH (17:11)
[2021-10-17 17:18] LABS: ALBUMIN 2.8 g/dl (3.4-5.0); BLOOD UREA NITROGEN 117.3 mg/dL (7-18); N-TERMINAL BNP 59987.9 pg/ml (5-450)
[2021-10-17 22:48] LABS: EPI CELLS 7 /uL (0-25.1); HYALINE CASTS 6 /uL (0-3.1); URINE APPEARANCE CLOUDY; URINE BACTERIA 5 /uL (0-1359); URINE BILIRUBIN 1+ (NEGATIVE); URINE COLOR DK YELLOW; URINE GLUCOSE (UA) NEGATIVE (NEGATIVE); URINE KETONE NEGATIVE (NEGATIVE); URINE LEUK ESTERASE 1+ (NEGATIVE); URINE NITRITE NEGATIVE (NEGATIVE); URINE PROTEIN 2+ (NEGATIVE); URINE RBC 368 /uL (0-23.9); URINE WBC 49 /uL (0-25.8)
[2021-10-18 07:17] LABS: HEMATOCRIT 38.4 % (35.4-49); HEMOGLOBIN 13.1 GM/dL (11.7-16.9); MCH 32.3 pg (25.7-33.7); MCHC 34.1 g/dl (32.0-35.9); MEAN CELL VOLUME 94.8 fl (80-96); MEAN PLT VOLUME 9.7 fl (7.5-11.1); PLATELET COUNT 125 10^3/uL (134-434); RBC 4.06 M/mm3 (4.00-5.60); RDW 19.2 % (11.9-15.9); WHITE BLOOD COUNT 9.5 K/mm3 (4.0-10.0)
[2021-10-18 07:24] LABS: CHLORIDE 96 mmol/L (98-107); SODIUM 135 mmol/L (136-145)
[2021-10-18 07:31] LABS: ALBUMIN 2.8 g/dl (3.4-5.0); CALCIUM 9.4 mg/dL (8.5-10.1)
[2021-10-18 07:32] LABS: ANION GAP 13 MMOL/L (8-16); CO2 26 mmol/L (21-32); GLUCOSE,RANDOM 110 mg/dL (74-106); MAGNESIUM 2.5 mg/dL (1.8-2.4)
[2021-10-18 07:34] LABS: CREATININE 3.1 mg/dL (0.55-1.3); PHOSPHOROUS 4.4 mg/dL (2.5-4.9); SGPT/ALT 422 U/L (13-61)
[2021-10-18 07:35] LABS: SGOT/AST 258 U/L (15-37)
[2021-10-18 07:36] LABS: BILIRUBIN,TOTAL 5.4 mg/dL (0.2-1); TOT PROT 5.6 g/dl (6.4-8.2)
[2021-10-18 07:37] LABS: ALK PHOS 140 U/L (45-117); BLOOD UREA NITROGEN 128.3 mg/dL (7-18)
[2021-10-18] MEDS: AMIODARONE HCL 200 MG TABLET PO SCH (09:41)
[2021-10-18] MEDS: APIXABAN 2.5 MG TABLET PO SCH ×2 (09:41→23:00)
[2021-10-18] MEDS: FUROSEMIDE 40 MG/4 ML INJECTABLE VIAL IVPUSH SCH (09:41)
[2021-10-18] MEDS ORDERED: FUROSEMIDE INJECTION 100 MG in SODIUM CHLORIDE 40 ML IVPB SCH (11:00)
[2021-10-18 12:04] LABS: ANISOCYTOSIS 1+; MACROCYTOSIS 0
[2021-10-18] MEDS: METOPROLOL TARTRATE 25 MG TABLET (FP) PO SCH ×2 (12:12→23:40)
[2021-10-18] MEDS: FUROSEMIDE INJECTION 100 MG in SODIUM CHLORIDE 40 ML IVPB SCH (12:20)
[2021-10-18] MEDS: MILRINONE 20MG/100ML IVPB - 20,000 MCG/100 ML ML IVPB SCH (12:21)
[2021-10-18 23:17] LABS: ARTERIAL BLOOD GAS BASE EXCESS 2.8 mmol/L (-2-2); ARTERIAL BLOOD GAS PO2 82.2 mmHg (80-100); ARTERIAL BLOOD GAS pH 7.509 (7.350-7.450)
[2021-10-18 23:20] LABS: ALLENS TEST POSITIVE; VENT MODE PSV
[2021-10-18 23:21] LABS: VENT RATE 14
[2021-10-19] MEDS: MILRINONE 20MG/100ML IVPB - 20,000 MCG/100 ML ML IVPB SCH ×4 (00:25→16:00)
[2021-10-19] MEDS: FUROSEMIDE INJECTION 100 MG in SODIUM CHLORIDE 40 ML IVPB SCH ×2 (01:01→16:00)
[2021-10-19 07:14] LABS: HEMATOCRIT 35.7 % (35.4-49); HEMOGLOBIN 12.2 GM/dL (11.7-16.9); MCHC 34.1 g/dl (32.0-35.9); MEAN CELL VOLUME 94.1 fl (80-96); MEAN PLT VOLUME 9.1 fl (7.5-11.1); PLATELET COUNT 98 10^3/uL (134-434); RBC 3.79 M/mm3 (4.00-5.60); RDW 18.9 % (11.9-15.9); WHITE BLOOD COUNT 6.5 K/mm3 (4.0-10.0)
[2021-10-19 07:21] LABS: CHLORIDE 100 mmol/L (98-107); SODIUM 137 mmol/L (136-145)
[2021-10-19 07:25] LABS: ALBUMIN 2.4 g/dl (3.4-5.0); ANION GAP 8 MMOL/L (8-16); CALCIUM 8.6 mg/dL (8.5-10.1); CO2 29 mmol/L (21-32); GLUCOSE,RANDOM 97 mg/dL (74-106); MAGNESIUM 2.3 mg/dL (1.8-2.4)
[2021-10-19 07:28] LABS: SGOT/AST 216 U/L (15-37); SGPT/ALT 388 U/L (13-61)
[2021-10-19 07:30] LABS: BILIRUBIN,TOTAL 4.9 mg/dL (0.2-1); TOT PROT 5.1 g/dl (6.4-8.2)
[2021-10-19 07:31] LABS: ALK PHOS 124 U/L (45-117)
[2021-10-19 08:18] LABS: BLOOD UREA NITROGEN 124.2 mg/dL (7-18)
[2021-10-19] MEDS: AMIODARONE HCL 200 MG TABLET PO SCH (09:25)
[2021-10-19] MEDS: APIXABAN 2.5 MG TABLET PO SCH ×2 (09:25→22:07)
[2021-10-19] MEDS: METOPROLOL TARTRATE 25 MG TABLET (FP) PO SCH ×2 (09:25→22:07)
[2021-10-19] MEDS ORDERED: KCL 10 MEQ IVPB 10 MEQ/100 ML INFUS.BAG IVPB SCH (10:15)
[2021-10-19 11:38] LABS: ANISOCYTOSIS 1+; MACROCYTOSIS 0; OVALOCYTE 2+; TARGET CELLS 1+
[2021-10-19] MEDS ORDERED: DOPAMINE 400 MG/D5W - 400,000 MCG/250 ML INFUS.BAG IVPB SCH ×2 (16:45→17:55)
[2021-10-19] MEDS: NOREPINEPHRINE D5W PREMIX 16,000 MCG/500 ML BAG IVPB SCH (19:54)
[2021-10-19] MEDS: CHLORHEXIDINE GLUCONATE 4% CLEANSER FOR DECOLONIZATION TP SCH (22:07)
[2021-10-19] MEDS: MUPIROCIN 2% TOPICAL OINTMENT FOR DECOLONIZATION NS SCH (22:08)
[2021-10-20 07:48] LABS: HEMATOCRIT 34.4 % (35.4-49); HEMOGLOBIN 11.5 GM/dL (11.7-16.9); MCH 31.5 pg (25.7-33.7); MCHC 33.6 g/dl (32.0-35.9); MEAN PLT VOLUME 8.9 fl (7.5-11.1); PLATELET COUNT 129 10^3/uL (134-434); RBC 3.66 M/mm3 (4.00-5.60); WHITE BLOOD COUNT 9.5 K/mm3 (4.0-10.0)
[2021-10-20 07:57] LABS: CHLORIDE 98 mmol/L (98-107); SODIUM 135 mmol/L (136-145)
[2021-10-20 07:59] LABS: CALCIUM 8.3 mg/dL (8.5-10.1)
[2021-10-20 08:00] LABS: ALBUMIN 2.2 g/dl (3.4-5.0); ANION GAP 7 MMOL/L (8-16); CO2 29 mmol/L (21-32); GLUCOSE,RANDOM 128 mg/dL (74-106); MAGNESIUM 2.2 mg/dL (1.8-2.4)
[2021-10-20 08:03] LABS: CREATININE 2.6 mg/dL (0.55-1.3); SGOT/AST 110 U/L (15-37); SGPT/ALT 300 U/L (13-61)
[2021-10-20 08:04] LABS: TOT PROT 4.7 g/dl (6.4-8.2)
[2021-10-20 08:05] LABS: BILIRUBIN,TOTAL 4.2 mg/dL (0.2-1)
[2021-10-20 08:06] LABS: ALK PHOS 110 U/L (45-117)
[2021-10-20 08:34] LABS: BLOOD UREA NITROGEN 111.3 mg/dL (7-18)
[2021-10-20] MEDS: MUPIROCIN 2% TOPICAL OINTMENT FOR DECOLONIZATION NS SCH ×2 (09:02→21:08)
[2021-10-20] MEDS: METOPROLOL TARTRATE 25 MG TABLET (FP) PO SCH ×2 (09:03→21:08)
[2021-10-20] MEDS ORDERED: KCL 10 MEQ IVPB 10 MEQ/100 ML INFUS.BAG IVPB SCH (09:15)
[2021-10-20] MEDS: APIXABAN 2.5 MG TABLET PO SCH ×2 (09:19→21:08)
[2021-10-20] MEDS: AMIODARONE HCL 200 MG TABLET PO SCH (09:22)
[2021-10-20] MEDS: KCL 10 MEQ IVPB 10 MEQ/100 ML INFUS.BAG IVPB SCH ×3 (09:22→13:00)
[2021-10-20 09:58] LABS: ANISOCYTOSIS 1+; MACROCYTOSIS 1+
[2021-10-20 17:25] LABS: CALCIUM 8.4 mg/dL (8.5-10.1)
[2021-10-20 17:26] LABS: ALBUMIN 2.2 g/dl (3.4-5.0); BLOOD UREA NITROGEN 99.7 mg/dL (7-18)
[2021-10-20 17:29] LABS: CREATININE 2.6 mg/dL (0.55-1.3)
[2021-10-20 17:31] LABS: BILIRUBIN,TOTAL 4.1 mg/dL (0.2-1)
[2021-10-20] MEDS: MILRINONE 20MG/100ML IVPB - 20,000 MCG/100 ML ML IVPB SCH (18:03)
[2021-10-20] MEDS: FUROSEMIDE INJECTION 100 MG in SODIUM CHLORIDE 40 ML IVPB SCH (18:03)
[2021-10-20] MEDS ORDERED: POTASSIUM CHLORIDE TABS 20 MEQ TABLET.ER (FP) PO ONE (19:07)
[2021-10-20] MEDS: NOREPINEPHRINE D5W PREMIX 16,000 MCG/500 ML BAG IVPB SCH (19:41)
[2021-10-20] MEDS: CHLORHEXIDINE GLUCONATE 4% CLEANSER FOR DECOLONIZATION TP SCH (21:08)
[2021-10-20] MEDS ORDERED: ACETAMINOPHEN 1000 MG/100 ML BAG IVPB ONE (22:02)
[2021-10-20] MEDS ORDERED: MAGNESIUM SULFATE IN WATER 4 GM/50 ML BAG IVPB ONE (22:17)
[2021-10-20] MEDS ORDERED: RAPID SEQUENCE INTUBATION KIT NR ONE (22:18)
[2021-10-20] MEDS ORDERED: AMIODARONE IN DEXTROSE 150 MG/100 ML PREMIX BAG IVPB ONE (22:22)
[2021-10-20] MEDS ORDERED: ACETAMINOPHEN 1000 MG/100 ML BAG IVPB PRN (22:22)
[2021-10-20] MEDS ORDERED: AMIODARONE IN DEXTROSE,ISO-OSM 150 MG/100 ML BAG ONE (22:23)
[2021-10-20] MEDS ORDERED: METOPROLOL TARTRATE 5 MG/5 ML VIAL IVPUSH ONE (22:38)
[2021-10-20] MEDS ORDERED: METOPROLOL TARTRATE 5 MG/5 ML VIAL ONE ×2 (22:40→22:41)
[2021-10-20 22:58] LABS: BASO % 0.1 % (0-2.0); EOS % 0.1 % (0-4.5); HEMATOCRIT 36.3 % (35.4-49); HEMOGLOBIN 12.3 GM/dL (11.7-16.9); LYMPH % 1.1 % (8-40); MCH 31.7 pg (25.7-33.7); MCHC 33.8 g/dl (32.0-35.9); MEAN CELL VOLUME 93.7 fl (80-96); MEAN PLT VOLUME 8.5 fl (7.5-11.1); MONO % 2.6 % (3.8-10.2); NEUT % 96.1 % (42.8-82.8); PLATELET COUNT 135 10^3/uL (134-434); RBC 3.88 M/mm3 (4.00-5.60); RDW 19.1 % (11.9-15.9); VENOUS BASE EXCESS 2.6 mmol/L (-2-2); VENOUS O2 SATURATION 93.9 % (70-80); VENOUS PCO2 31.8 mmHg (38-52); VENOUS PH 7.513 (7.310-7.410); WHITE BLOOD COUNT 11.6 K/mm3 (4.0-10.0)
[2021-10-20] MEDS ORDERED: AMIODARONE IN DEXTROSE,ISO-OSM 360 MG/200 ML BAG IVPB ONE (23:00)
[2021-10-20 23:05] LABS: INR 2.24 (0.83-1.09)
[2021-10-20 23:08] LABS: ACTIVATED PTT 31.7 SECONDS (25.2-36.5)
[2021-10-20 23:11] LABS: URINE APPEARANCE Clear; URINE BILIRUBIN 1+ (NEGATIVE); URINE COLOR Yellow; URINE GLUCOSE (UA) Negative (NEGATIVE); URINE KETONE Trace (NEGATIVE); URINE LEUK ESTERASE 3+ (NEGATIVE); URINE NITRITE Positive (NEGATIVE); URINE PROTEIN 3+ (NEGATIVE); URINE UROBILINOGEN 4.0 E.U/dl mg/dL (0.2-1.0)
[2021-10-20] MEDS: VASOPRESSIN 40 UNITS/100 ML BAG IV SCH (23:16)
[2021-10-20 23:19] LABS: ANISOCYTOSIS 1+; MACROCYTOSIS 0
[2021-10-20 23:20] LABS: PLATELET ESTIMATE ADEQUATE
[2021-10-20 23:21] LABS: CHLORIDE 96 mmol/L (98-107); SODIUM 133 mmol/L (136-145)
[2021-10-20 23:23] LABS: CALCIUM 8.7 mg/dL (8.5-10.1); GLUCOSE,RANDOM 132 mg/dL (74-106)
[2021-10-20 23:24] LABS: ALBUMIN 2.3 g/dl (3.4-5.0); ANION GAP 11 MMOL/L (8-16); BLOOD UREA NITROGEN 102.8 mg/dL (7-18); CO2 26 mmol/L (21-32)
[2021-10-20 23:27] LABS: CREATININE 2.6 mg/dL (0.55-1.3); SGOT/AST 85 U/L (15-37)
[2021-10-20 23:28] LABS: BILIRUBIN,TOTAL 3.8 mg/dL (0.2-1); TOT PROT 5.1 g/dl (6.4-8.2)
[2021-10-20 23:30] LABS: ALK PHOS 125 U/L (45-117); LACTIC ACID 4.4 mmol/L (0.4-2.0); SGPT/ALT 286 U/L (13-61)
[2021-10-20] MEDS ORDERED: SODIUM CHLORIDE 500 ML IV STA (23:45)
[2021-10-20] MEDS ORDERED: PIPERACILLIN/TAZOB 2.25 GM 2.25 GM in DEXTROSE 5%-WATER - 50 ML IVPB SCH (23:45)
[2021-10-20] MEDS ORDERED: FLUDROCORTISONE ACETATE 0.1 MG TABLET (FP) PO SCH (23:53)
[2021-10-21] MEDS ORDERED: PIPERACILLIN/TAZOB 2.25 GM 2.25 GM in DEXTROSE 5%-WATER - 50 ML IVPB SCH (00:15)
[2021-10-21] MEDS ORDERED: SODIUM CHLORIDE 500 ML IV STA (00:39)
[2021-10-21] MEDS: HYDROCORTISONE SOD SUCCINATE 100 MG/2 ML VIAL IVPB SCH ×5 (00:43→21:54)
[2021-10-21] MEDS ORDERED: PIPERACILLIN/TAZOB 4.5 GM 4.5 GM in DEXTROSE 5%-WATER 100 ML IVPB ONE (00:45)
[2021-10-21] MEDS ORDERED: DEXTROSE 5%-WATER 100 ML IVPB ONE (00:52)
[2021-10-21] MEDS ORDERED: PIPERACILLIN/TAZOBACTAM 4.5 GM VIAL IVPB ONE (00:52)
[2021-10-21] MEDS ORDERED: VANCOMYCIN/WATER FOR INJ (PEG) 1,000 MG/200 ML BAG IVPB SCH (01:30)
[2021-10-21] MEDS: NOREPINEPHRINE BITARTRATE 16,000 MCG in SODIUM CHLORIDE 484 ML IV SCH (01:32)
[2021-10-21 02:54] LABS: LACTIC ACID 3.4 mmol/L (0.4-2.0)
[2021-10-21] MEDS ORDERED: DEXTROSE 5%-WATER - 50 ML IVPB ONE ×4 (04:44→21:45)
[2021-10-21] MEDS ORDERED: PIPERACILLIN/TAZOBACTAM 2.25 GM VIAL IVPB ONE ×4 (04:44→21:45)
[2021-10-21] MEDS: PIPERACILLIN/TAZOB 2.25 GM 2.25 GM in DEXTROSE 5%-WATER - 50 ML IVPB SCH ×4 (04:50→21:52)
[2021-10-21] MEDS ORDERED: AMIODARONE IN DEXTROSE,ISO-OSM 360 MG/200 ML BAG IV SCH (05:00)
[2021-10-21 07:06] LABS: HEMATOCRIT 33.8 % (35.4-49); HEMOGLOBIN 11.3 GM/dL (11.7-16.9); MCH 31.4 pg (25.7-33.7); MCHC 33.4 g/dl (32.0-35.9); MEAN CELL VOLUME 94.1 fl (80-96); MEAN PLT VOLUME 9.1 fl (7.5-11.1); PLATELET COUNT 124 10^3/uL (134-434); RBC 3.59 M/mm3 (4.00-5.60); RDW 19.3 % (11.9-15.9); WHITE BLOOD COUNT 17.5 K/mm3 (4.0-10.0)
[2021-10-21 07:26] LABS: ALBUMIN 2.1 g/dl (3.4-5.0); BLOOD UREA NITROGEN 95.9 mg/dL (7-18); CALCIUM 8.2 mg/dL (8.5-10.1); MAGNESIUM 2.5 mg/dL (1.8-2.4)
[2021-10-21 07:29] LABS: CREATININE 2.5 mg/dL (0.55-1.3); PHOSPHOROUS 2.8 mg/dL (2.5-4.9)
[2021-10-21 07:30] LABS: LACTIC ACID 3.1 mmol/L (0.4-2.0)
[2021-10-21 07:31] LABS: BILIRUBIN,TOTAL 3.8 mg/dL (0.2-1); TOT PROT 4.7 g/dl (6.4-8.2)
[2021-10-21 09:01] LABS: ANISOCYTOSIS 1+; MACROCYTOSIS 1+
[2021-10-21] MEDS: APIXABAN 2.5 MG TABLET PO SCH ×2 (09:46→21:54)
[2021-10-21] MEDS: MUPIROCIN 2% TOPICAL OINTMENT FOR DECOLONIZATION NS SCH ×2 (09:47→22:48)
[2021-10-21] MEDS: METOPROLOL TARTRATE 25 MG TABLET (FP) PO SCH ×2 (09:55→21:54)
[2021-10-21] MEDS: AMIODARONE HCL 200 MG TABLET PO SCH (09:55)
[2021-10-21] MEDS: FLUDROCORTISONE ACETATE 0.1 MG TABLET (FP) PO SCH (10:01)
[2021-10-21] MEDS: VANCOMYCIN 1 GM in D5W (PRE-DOCKED) 1,000 MG/250 ML IVPB SCH (11:10)
[2021-10-21 15:57] VITALS: BMI 25.1
[2021-10-21 17:15] LABS: LACTIC ACID 4.5 mmol/L (0.4-2.0)
[2021-10-21] MEDS ORDERED: SODIUM CHLORIDE 250 ML IV STA ×2 (17:44→21:35)
[2021-10-21] MEDS ORDERED: VANCOMYCIN 1 GM/200 ML PREMIX BAG IVPB ONE (17:51)
[2021-10-21 21:26] LABS: LACTIC ACID 4.9 mmol/L (0.4-2.0)
[2021-10-21] MEDS: CHLORHEXIDINE GLUCONATE 4% CLEANSER FOR DECOLONIZATION TP SCH (21:54)
[2021-10-21] MEDS: VASOPRESSIN 40 UNITS/100 ML BAG IV SCH (23:47)
[2021-10-22] MEDS: NOREPINEPHRINE BITARTRATE 16,000 MCG in SODIUM CHLORIDE 484 ML IV SCH (02:41)
[2021-10-22] MEDS ORDERED: PIPERACILLIN/TAZOBACTAM 2.25 GM VIAL IVPB ONE ×4 (02:59→20:33)
[2021-10-22] MEDS ORDERED: DEXTROSE 5%-WATER - 50 ML IVPB ONE ×4 (02:59→20:33)
[2021-10-22] MEDS: HYDROCORTISONE SOD SUCCINATE 100 MG/2 ML VIAL IVPB SCH ×4 (03:00→21:26)
[2021-10-22] MEDS: PIPERACILLIN/TAZOB 2.25 GM 2.25 GM in DEXTROSE 5%-WATER - 50 ML IVPB SCH ×4 (03:00→21:27)
[2021-10-22 08:13] LABS: INR 2.55 (0.83-1.09); PROTHROMBIN TIME (PATIENT) 29.6 SEC (9.7-13.0)
[2021-10-22 08:15] LABS: CALCIUM 8.5 mg/dL (8.5-10.1); HEMOGLOBIN 11.7 GM/dL (11.7-16.9); MCHC 33.4 g/dl (32.0-35.9); MEAN CELL VOLUME 95.9 fl (80-96); MEAN PLT VOLUME 9.3 fl (7.5-11.1); PLATELET COUNT 125 10^3/uL (134-434); RBC 3.65 M/mm3 (4.00-5.60); RDW 19.7 % (11.9-15.9); WHITE BLOOD COUNT 14.5 K/mm3 (4.0-10.0)
[2021-10-22 08:16] LABS: ALBUMIN 2.3 g/dl (3.4-5.0); MAGNESIUM 2.8 mg/dL (1.8-2.4)
[2021-10-22 08:18] LABS: PHOSPHOROUS 4.7 mg/dL (2.5-4.9)
[2021-10-22 08:19] LABS: CREATININE 2.6 mg/dL (0.55-1.3)
[2021-10-22 08:20] LABS: BILIRUBIN,TOTAL 4.2 mg/dL (0.2-1); TOT PROT 5.2 g/dl (6.4-8.2)
[2021-10-22 08:29] LABS: LACTIC ACID 7.9 mmol/L (0.4-2.0)
[2021-10-22] MEDS: FLUDROCORTISONE ACETATE 0.1 MG TABLET (FP) PO SCH (10:03)
[2021-10-22] MEDS: APIXABAN 2.5 MG TABLET PO SCH ×2 (10:03→21:29)
[2021-10-22] MEDS: MUPIROCIN 2% TOPICAL OINTMENT FOR DECOLONIZATION NS SCH ×2 (10:07→21:29)
[2021-10-22] MEDS: AMIODARONE HCL 200 MG TABLET PO SCH (10:08)
[2021-10-22 10:24] LABS: ANISOCYTOSIS 1+; MACROCYTOSIS 1+
[2021-10-22] MEDS: METOPROLOL TARTRATE 25 MG TABLET (FP) PO SCH (11:35)
[2021-10-22 11:50] LABS: LACTIC ACID 7.5 mmol/L (0.4-2.0)
[2021-10-22] MEDS ORDERED: METOPROLOL TARTRATE 5 MG/5 ML VIAL IVPUSH PRN ×2 (11:50→11:52)
[2021-10-22] MEDS ORDERED: FUROSEMIDE 40 MG/4 ML INJECTABLE VIAL IVPUSH ONE (14:00)
[2021-10-22] MEDS: METOPROLOL TARTRATE 5 MG/5 ML VIAL IVPUSH SCH ×3 (14:44→21:29)
[2021-10-22] MEDS: CEFAZOLIN 2 GM in DEXTROSE 5%-WATER - 100 ML IVPB SCH (15:15)
[2021-10-22 17:34] LABS: LACTIC ACID 8.3 mmol/L (0.4-2.0)
[2021-10-22] MEDS: CHLORHEXIDINE GLUCONATE 4% CLEANSER FOR DECOLONIZATION TP SCH (21:29)
[2021-10-22] MEDS: VASOPRESSIN 40 UNITS/100 ML BAG IV SCH (22:45)
[2021-10-23] MEDS ORDERED: DEXTROSE 5%-WATER - 50 ML IVPB ONE (01:45)
[2021-10-23] MEDS ORDERED: PIPERACILLIN/TAZOBACTAM 2.25 GM VIAL IVPB ONE (01:45)
[2021-10-23] MEDS: CEFAZOLIN 2 GM in DEXTROSE 5%-WATER - 100 ML IVPB SCH (02:11)
[2021-10-23] MEDS: HYDROCORTISONE SOD SUCCINATE 100 MG/2 ML VIAL IVPB SCH (02:11)
[2021-10-23] MEDS: METOPROLOL TARTRATE 5 MG/5 ML VIAL IVPUSH SCH ×2 (02:11→05:08)
[2021-10-23] MEDS: PIPERACILLIN/TAZOB 2.25 GM 2.25 GM in DEXTROSE 5%-WATER - 50 ML IVPB SCH (02:12)
[2021-10-23] MEDS: NOREPINEPHRINE BITARTRATE 16,000 MCG in SODIUM CHLORIDE 484 ML IV SCH (02:20)
[2021-10-23 07:03] VITALS: TEMP 97.8
[2021-10-23 07:38] LABS: HEMATOCRIT 33.3 % (35.4-49); HEMOGLOBIN 11.3 GM/dL (11.7-16.9); MCH 32.3 pg (25.7-33.7); MEAN CELL VOLUME 94.8 fl (80-96); MEAN PLT VOLUME 9.7 fl (7.5-11.1); PLATELET COUNT 103 10^3/uL (134-434); RBC 3.51 M/mm3 (4.00-5.60); RDW 19.5 % (11.9-15.9); WHITE BLOOD COUNT 10.3 K/mm3 (4.0-10.0)
[2021-10-23 07:39] LABS: INR 3.32 (0.83-1.09); PROTHROMBIN TIME (PATIENT) 38.6 SEC (9.7-13.0)
[2021-10-23 07:52] LABS: CHLORIDE 94 mmol/L (98-107); SODIUM 130 mmol/L (136-145)
[2021-10-23 07:56] LABS: CALCIUM 8.8 mg/dL (8.5-10.1)
[2021-10-23 07:57] LABS: ALBUMIN 2.2 g/dl (3.4-5.0); ANION GAP 16 MMOL/L (8-16); CO2 21 mmol/L (21-32); GLUCOSE,RANDOM 91 mg/dL (74-106)
[2021-10-23 08:00] LABS: ALK PHOS 114 U/L (45-117); CREATININE 3.1 mg/dL (0.55-1.3); SGPT/ALT 902 U/L (13-61)
[2021-10-23 08:01] LABS: TOT PROT 4.8 g/dl (6.4-8.2)
[2021-10-23 08:10] LABS: BLOOD UREA NITROGEN 111.4 mg/dL (7-18); LACTIC ACID 7.3 mmol/L (0.4-2.0); SGOT/AST 1220 U/L (15-37)
[2021-10-23 08:54] LABS: ANISOCYTOSIS 1+; MACROCYTOSIS 1+; PLATELET ESTIMATE DECREASED
[2021-10-23 09:22] VITALS: BP 108/67
[2021-10-23] MEDS ORDERED: PIPERACILLIN/TAZOB 2.25 GM 2.25 GM in DEXTROSE 5%-WATER - 50 ML IVPB SCH (10:00)
[2021-10-23 10:35] VITALS: PULSE 84
== END 2021-10-23 10:00 | disposition expired | DRG 871 ==
LOC: JER 15:32 → JERBED 20:49 → J2W 23:42 → JICU 10-19 13:41
PROVIDERS: ADMIT Hospitalist; ATTEND Internal Medicine Pulmonary Disease
PROC: 05HN33Z Insertion of Infusion Device into Left Internal Jugular Vein, Percutaneous Approach (ICD-10-PCS; 2021-10-19)
PROC: B544ZZA Ultrasonography of Left Jugular Veins, Guidance (ICD-10-PCS; 2021-10-19)
PROC: 4A133B1 Monitoring of Arterial Pressure, Peripheral, Percutaneous Approach (ICD-10-PCS; 2021-10-20)
PROC: 4A133J1 Monitoring of Arterial Pulse, Peripheral, Percutaneous Approach (ICD-10-PCS; 2021-10-20)
PROC: 05HM33Z Insertion of Infusion Device into Right Internal Jugular Vein, Percutaneous Approach (ICD-10-PCS; principal; 2021-10-21)
PROC: B543ZZA Ultrasonography of Right Jugular Veins, Guidance (ICD-10-PCS; 2021-10-21)
PROC: 5A12012 Performance of Cardiac Output, Single, Manual (ICD-10-PCS; 2021-10-23)
DX: A41.9 Sepsis, unspecified organism (principal); I50.23 Acute on chronic systolic (congestive) heart failure; J96.01 Acute respiratory failure with hypoxia; R65.21 Severe sepsis with septic shock; I13.0 Hypertensive heart and chronic kidney disease with heart failure and stage 1 through stage 4 chronic kidney disease, or unspecified chronic kidney disease; I47.2 Ventricular tachycardia; N17.9 Acute kidney failure, unspecified; R57.0 Cardiogenic shock; I48.91 Unspecified atrial fibrillation; R74.01 Elevation of levels of liver transaminase levels; N18.9 Chronic kidney disease, unspecified; I46.9 Cardiac arrest, cause unspecified; E87.70 Fluid overload, unspecified; E87.5 Hyperkalemia; I25.10 Atherosclerotic heart disease of native coronary artery without angina pectoris; I34.0 Nonrheumatic mitral (valve) insufficiency; I25.5 Ischemic cardiomyopathy; E78.5 Hyperlipidemia, unspecified
CPT/HCPCS: 0241U-QW; 36415; 36600; 71045-TC-FY; 80053; 81003; 82803; 82962; 83605; 83735; 83880; 84100; 84484; 85025; 85610; 85730; 86850; 86900; 86901; 87040; 87086; 87186; 93005; 93010; 93306-TC; 93971; 94660; 97162-GP; 99291; G0480; J0282; J3490